=== PATIENT | female | born 1995 | race Caucasian/White ===

== ENCOUNTER 2018-01-03 12:22 | Emergency (ER) | payer OTHER ==
[2018-01-03] MEDS ORDERED: KETOROLAC 30 MG/1 ML SDV IVP ONE (13:46)
--- NOTE | 2018-01-03 13:49 | EDPHY ---
H & P Stated Complaint: rlq abd pain today Time Seen by Provider: 01/03/18 13:32 HPI/ROS: CHIEF COMPLAINT: Pelvic pain HISTORY OF PRESENT ILLNESS: 22-year-old female s/p appy presents with pelvic pain. She awoke this morning with right-sided pelvic pain. The pain has waxed and waned and is currently mild. Currently menstruating, heavier period than usual. No radiation of pain and no other associated symptoms. No prior similar symptoms and no history of ovarian cyst. REVIEW OF SYSTEMS: complete 10 point ROS negative except at noted in the HPI - Personal History LMP (Females 10-55): Now Current Tetanus Diphtheria and Acellular Pertussis (TDAP): Yes - Medical/Surgical History Hx Asthma: No Hx Chronic Respiratory Disease: No Hx Diabetes: No Hx Cardiac Disease: No Hx Renal Disease: No Hx Cirrhosis: No Hx Alcoholism: No Hx HIV/AIDS: No Hx Splenectomy or Spleen Trauma: No Other PMH: appy - Social History Smoking Status: Current every day smoker - Physical Exam Exam: General Appearance: Alert, pleasant Eyes: Pupils equal and round, no conjunctival pallor ENT, Mouth: Mucous membranes moist Neck: Normal inspection Respiratory: Lungs are clear to auscultation Cardiovascular: Regular rate and rhythm Gastrointestinal: Abdomen is soft, right lower quadrant tenderness Neurological: A&O, nonfocal exam Skin: Warm and dry, no rash Extremities: Normal inspection Psychiatric: Mood and affect normal Constitutional: Initial Vital Signs Temperature (C) 36.9 C 01/03/18 12:42 Heart Rate 76 01/03/18 12:42 Respiratory Rate 17 01/03/18 12:42 Blood Pressure 116/75 01/03/18 12:42 O2 Sat (%) 99 01/03/18 12:42 O2 Delivery Mode Room Air Allergies/Adverse Reactions: No Known Allergies Allergy (Unverified 01/03/18 12:42) Home Medications: Medication Instructions Recorded NK [No Known Home Meds] 01/03/18 Medical Decision Making - Diagnostics Imaging Results: 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 Imaging: Discussed imaging studies w/ yardage caller Radiologist ED Course/Re-evaluation: This patient presents with right-sided pelvic pain and is currently menstruating. Abdominal exam reveals right lower quadrant tenderness. Stat test negative. Pelvic ultrasound ordered to rule out ovarian cyst/ torsion. Pelvic ultrasound reveals no evidence ovarian cyst, read by the radiologist. Pain has almost completely resolved. Abdominal exam remains benign. Likely pelvic pain secondary to dysmenorrhea. Ibuprofen instructions given. Abdominal pain precautions given. Differential Diagnosis: Differential diagnosis includes though it is not limited to ectopic , ovarian cyst, ovarian torsion, PID, UTI, appendicitis. 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 He also have 2 small ovarian cysts on the right ovary. I doubt that the cysts or causing the pain. More likely, the pain is because of your menstrual cycle. Ibuprofen 600 mg 3 times daily while the pain persists. Return for worsening symptoms or any concerns. Referrals: Vi Epperson MD [Medical Doctor] - As per Instructions
[2018-01-03 13:51] LABS: PLATELET COUNT 300 10^3/uL (150-400)
[2018-01-03 15:27] VITALS: BP 115/81
== END 2018-01-03 15:26 | disposition home or self-care (01) ==
DX: R10.2 Pelvic and perineal pain (principal); F17.200 Nicotine dependence, unspecified, uncomplicated
CPT/HCPCS: 96374; J1885